=== PATIENT | female | born 1985 | race Caucasian/White ===

== ENCOUNTER 2020-02-04 10:29 | Outpatient (CLI) | payer OTHER, SELFPAY ==
--- NOTE | ~2020-02-04 | US_ITS ---
EXAMINATION: US right upper quadrant DATE: 02/04/2020 11:35 INDICATION: Right upper quadrant abdominal pain. TECHNIQUE: Multiple grayscale and Doppler ultrasound images of the abdomen were obtained. COMPARISON: Ultrasound abdomen 05/17/2013, CT abdomen and pelvis 11/04/2011 FINDINGS: The visualized portions of the head, body, and tail of the pancreas are normal. The liver i s normal without focal lesion. There is normal flow in main portal vein. The gallbladder is normal in size. No gallstones or gallbladder wall thickening. There was a positive sonographic Torres sign. Th e common duct is normal and measures 2 mm. IMPRESSION: 1. Normal right upper quadrant ultrasound. No etiology for the positive sonographic Torres sign. Reviewed, dictated and finalized at location A. IMPRESSION: 1. Normal right upper quadrant ultrasound. No etiology for the positive sonogra phic Torres sign.
--- NOTE | ~2020-02-04 | XR_ITS ---
EXAMINATION: XR thoracic spine 3V EXAM DATE: 02/04/2020 11:48 INDICATION: No known recent injury provided at this time. Pain of the thoracic and low back pain. TECHNIQUE: Frontal and lateral projections of the thoracic spine as well as lateral swimmers projecti on of the upper thoracic spine for interpretation. There is no prior study for comparison. FINDINGS: There are a few degrees of mid thoracic dextrocurvature, lower thoracic levocurvature. Ther e is minimal mid and lower thoracic disc disease. The vertebral bodies are aligned in the AP dimensio n. Paraspinal soft tissue is unremarkable. No endplate erosive change. IMPRESSION: Minimal thoracic disc disease and curvature. Reviewed, dictated and finalized at location A.
--- NOTE | ~2020-02-04 | XR_ITS ---
EXAMINATION: XR lumbar spine 2-3V EXAM DATE: 02/04/2020 11:48 INDICATION: Low back. TECHNIQUE: Lumber spine frontal, lateral, lateral L5-S1 projections for interpretation. Comparison is made to prior examination from 05/17/2013. FINDINGS: There is mild lumbar facet arthropathy. The vertebral bodies are aligned in the AP dimensi on. Vertebral body and disc heights are well-maintained. Sacrum, sacroiliac joints, sacral arcuate li jordan are intact. There is IUD projecting over the central aspect of the pelvis. Calcifications in the pelvis are believed to be phleboliths. IMPRESSION: Mild lumbar facet arthropathy. Reviewed, dictated and finalized at location A.
--- NOTE | ~2020-02-04 | XR_ITS ---
EXAMINATION: XR abdomen obstructive series DATE: 02/04/2020 11:48 INDICATION: Epigastric abdominal pain. TECHNIQUE: Upright and supine views of the abdomen were obtained. COMPARISON: None. FINDINGS: There are no dilated loops of bowel. There is a moderate volume of stool in the colon. Ther e is an intrauterine device in expected position. No free intraperitoneal gas. IMPRESSION: 1. Normal bowel gas pattern. Reviewed, dictated and finalized at location A.
== END 2020-02-04 10:30 | disposition home or self-care (01) ==
LOC: ANHIMG 10:46
PROVIDERS: PCP Family Medicine; Visit Provider Family Medicine
DX: R10.11 Right upper quadrant pain (principal); R10.13 Epigastric pain; M51.24 Other intervertebral disc displacement, thoracic region
CPT/HCPCS: 72072; 72100; 74019; 76705